=== PATIENT | male | born 1980 | race Caucasian/White ===

== ENCOUNTER 2017-09-28 12:15 | Emergency (ER) | payer OTHER ==
[~2017-09-28] VITALS: Ht 182.9 cm; Wt 103.9 kg
[~2017-09-28 12:15] MED LIST: ALLOPURINOL100 MG; DEPAKOTE250 MG; DEPAKOTE500 MG; DULCOLAX5 MG PO; KEPPRA500 MG; ULTRAM50 MG PO; VICODIN 5-3001 EACH PO
[2017-09-28 12:36] LABS: HEMATOCRIT 43.8 % (38.0-50.0); HEMOGLOBIN 15.8 G/DL (12.5-16.6); MCH 31.9 PG (29.0-34.0); MCHC 36.1 G/DL (30.0-36.0); MCV 88.5 FL (86-99); PLATELET COUNT 188 K/uL (156-360); RBC DIS.WIDTH-CV 12.6 % (11.8-14.6); RBC DIS.WIDTH-SD 40.7 % (39-53); RED BLOOD COUNT 4.95 M/uL (4.00-5.50); WHITE BLOOD COUNT 7.3 K/uL (4.1-10.2)
[2017-09-28 13:24] LABS: CHLORIDE 104 mEq/L (99-109); POTASSIUM 4.4 mEq/L (3.7-5.4); SODIUM 142 mEq/L (136-147)
[2017-09-28 13:26] LABS: GLUCOSE 96 mg/dL (70-99)
[2017-09-28 13:29] LABS: CREATININE 0.9 mg/dL (0.6-1.3); GFR ESTIMATE (CALCULATED) > 59 mL/min/ (58.99-99999)
[2017-09-28 13:30] LABS: UREA NITROGEN (BUN) 12 mg/dL (9-23)
[2017-09-28] MEDS ORDERED: KEPPRA500 MG PO (13:54)
[2017-09-28] MEDS ORDERED: DEPAKOTE500 MG PO (13:56)
[2017-09-28 13:57] LABS: APPEARANCE CLEAR ((CLEAR)); BILIRUBIN NEGATIVE; BLOOD SMALL; COLOR YELLOW ((YELLOW)); GLUCOSE (STRIP) NEGATIVE; KETONES NEGATIVE; LEUKOCYTES NEGATIVE; NITRITE NEGATIVE; PROTEIN (STRIP) NEGATIVE; SPECIFIC GRAVITY 1.019 (1.000-1.030)
[2017-09-28] MEDS ORDERED: DEPAKOTE250 MG PO (13:57)
[2017-09-28] MEDS ORDERED: ZYLOPRIM100 MG PO (13:58)
[2017-09-28] MEDS ORDERED: vitamin d-3 PO (14:01)
[2017-09-28] MEDS ORDERED: vitamin b6 PO (14:02)
[2017-09-28 14:22] LABS: BACTERIA NONE SEEN /HPF; EPITHELIAL CELLS NONE SEEN /HPF; MUCUS TRACE /LPF; RED BLOOD CELLS NONE SEEN /HPF (0-5); UCUL ADDED? NO; WHITE BLOOD CELLS 0-5 /HPF (0-5)
[2017-09-28] MEDS ORDERED: ZOFRAN ODT4 MG PO (14:36)
[2017-09-28] MEDS ORDERED: MOTRIN600 MG PO (14:36)
[2017-09-28 14:55] VITALS: BP 140/78
== END 2017-09-28 15:08 | disposition home or self-care (01) ==
LOC: EME 12:15
DX: R10.9 Unspecified abdominal pain (principal); R31.9 Hematuria, unspecified; G40.909 Epilepsy, unspecified, not intractable, without status epilepticus; Z98.2 Presence of cerebrospinal fluid drainage device; Z88.8 Allergy status to other drugs, medicaments and biological substances
CPT/HCPCS: 74176; 80048; 81003; 85027; 99281; 99285